=== PATIENT | male | born 1955 | race Caucasian/White ===

== ENCOUNTER 2016-08-26 16:00 | Inpatient (IN) | payer MEDICARE, SELFPAY ==
[~2016-08-26] VITALS: Ht 188 cm; Wt 115.1 kg
--- NOTE | ~2016-08-26 | HP ---
PATIENT'S NAME: LUZ JIMENEZ [facility] AGE: 61 Y [address] ROOM: [place] [address] LOCATION: [facility] [place] ADMIT DATE: 08/26/2016 History & Physical DISCHARGE DATE: FAMILY PHYSICIAN: PHYSICIAN, UNKNOWN ATTENDING PHYSICIAN: Alessandro Reyez DATE OF SERVICE: CHIEF COMPLAINT: Shortness of breath. HISTORY OF PRESENT ILLNESS: The patient is a 61-year-old male with known history of COPD, who presented to Pulmonary Clinic and was feeling short of breath and in the 80s at home. The patient was admitted and is being started on treatments and IV steroids. The patient denies any abdominal pain, fevers, chills, headaches, nausea, vomiting, pain, or burning with urination. PAST MEDICAL HISTORY: 1. COPD. 2. Depression. 3. Diabetes mellitus type 2. 4. GERD. 5. Pure hypercholesterolemia. 6. Pulmonary hypertension. 7. Hypertension. PAST SURGICAL HISTORY: 1. Back surgery. 2. Bronchoscopy. 3. Colonoscopy. ALLERGIES: NOVOCAIN. MEDICATIONS: Please see list. SOCIAL HISTORY: The patient is a former smoker for several years. FAMILY HISTORY: Noncontributory. REVIEW OF SYSTEMS: A complete review of systems was obtained, pertinent positives and negatives as mentioned in the HPI. PATIENT'S NAME: LUZ JIMENEZ [facility] AGE: 61 Y [address] ROOM: [place] [address] LOCATION: [facility] [place] ADMIT DATE: 08/26/2016 History & Physical DISCHARGE DATE: FAMILY PHYSICIAN: PHYSICIAN, UNKNOWN ATTENDING PHYSICIAN: Alessandro Reyez OBJECTIVE: VITAL SIGNS: Temperature is 98.2, pulse 87, respirations 16, blood pressure 130/71. GENERAL: The patient is alert and oriented. Appears in no acute distress. HEENT: Head: Normocephalic and atraumatic. Eyes: Conjunctivae clear. No scleral icterus. Mouth and Oropharynx: Grossly moist and pink. No lesions or exudates. NECK: Supple. No lymphadenopathy or thyromegaly. HEART: Regular rate and rhythm. No rubs, murmurs, or gallops. LUNGS: Decreased breath sounds bilaterally with expiratory wheezes. ABDOMEN: Bowel sounds present. Nontender. EXTREMITIES: No cyanosis, clubbing, or edema. VASCULAR: Pulses +2 and bilaterally. SKIN: No rash or lesions. LYMPHATICS: No lymphadenopathy. NEURO: Cranial nerves 2 through 12 grossly intact. ASSESSMENT: 1. Chronic obstructive pulmonary disease exacerbation. 2. Hypertension. 3. Diabetes mellitus type 2, insulin dependent. 4. Depression. 5. Hyperlipidemia. 6. Gastroesophageal reflux disease. PLAN: At this time, we will start the patient on IV steroids and continue with nebulizer treatments. We will have Pulmonology follow. We will continue to monitor his sugars and adjust insulin accordingly along with diabetes education. We will keep his blood pressure controlled on home medications along with his depression and hyperlipidemia. We will also monitor his GERD symptoms. MD JOSE G LOPEZ/amando /[id number] D: [id number] T: [id number] HISTORY & PHYSICAL
--- NOTE | ~2016-08-26 | DS ---
PATIENT'S NAME: LUZ JIMENEZ [facility] AGE: 61 Y [address] ROOM: [place] [address] LOCATION: [facility] ADMIT DATE: 08/26/2016 Discharge Summary DISCHARGE DATE: 09/01/2016 FAMILY PHYSICIAN: Alessandro Reyez MD ATTENDING PHYSICIAN: Alessandro Reyez DISCHARGE DIAGNOSES: 1. Serratia marcescens bronchiectasis. 2. Rhinovirus. 3. Acute respiratory failure, on chronic respiratory failure. 4. Chronic obstructive pulmonary disease exacerbation. 5. Depression. 6. Diabetes mellitus type 2, insulin dependent. 7. Gastroesophageal reflux disease. 8. Hypertension. 9. Acute on chronic renal failure stage 3. 10. Pure hypercholesterolemia. PROCEDURE DURING ADMISSION: None. CONSULTS DURING ADMISSION: 1. Pulmonology. 2. Diabetes Education. HOSPITAL COURSE: The patient is a 61-year-old male with known history of COPD, who presented to Pulmonary Clinic with acute exacerbation. The patient was hospitalized and respiratory panel to rule out rhinovirus and also Serratia marcescens. The patient was placed on a steroid taper along with DuoNeb treatments and also Levaquin. The patient had elevated sugars throughout his stay and required an insulin drip for some time. The patient's lipids and hypertension were controlled as were his GERD symptoms. Upon day of discharge, the patient's renal function was stable and his creatinine was down to 1.2. DISCHARGE CONDITION: Stable. DISPOSITION: Home. DISCHARGE MEDICATIONS: Please see list. DISCHARGE INSTRUCTIONS: The patient is to follow up in approximately 1 week and with Pulmonology as directed. We will place the patient on Levaquin to cover his Serratia marcescens and do a steroid taper. The patient has continued on breathing treatments at home and will also follow diabetes education recommendations for his insulin. He is to follow up with diabetes PATIENT'S NAME: LUZ JIMENEZ [facility] AGE: 61 Y [address] ROOM: [place] [address] LOCATION: [facility] ADMIT DATE: 08/26/2016 Discharge Summary DISCHARGE DATE: 09/01/2016 FAMILY PHYSICIAN: Alessandro Reyez MD ATTENDING PHYSICIAN: Alessandro Reyez education as directed also. Any concerns, he is to contact the clinic sooner. MD Tatianna LOPEZ /[id number] d: 09/02/16 1047 t: 09/10/16 1733, DISCHARGE SUMMARY
[~2016-08-26 16:00] MED LIST: ASPIR 8181 MG PO; ATORVASTATIN CA20 MG PO; ATROVENT I0.5 MG/2.5 INH; BENADRYL25 MG PO; BYSTOLIC10 MG PO; CATAPRES0.1 M1 PO; CLARITIN10 MG PO; COZAAR100 MG PO; COZAAR50 MG PO; DELTASONE10 MG PO; DELTASONE20 MG PO; DIFLUCAN200 MG PO; HUMALOG100 UNIT/1 SUB-Q; HYDROCHLOROTH12.5 MG PO; IPRAT-ALBUT 0.5-3 ML INH; LEVEMIR100 UNIT/1 SUB-Q; LEXAPRO10 MG PO; NEURONTIN300 MG PO; NILSTAT60 ML PO; NON-ASPIRIN PA500 MG PO; NORVASC10 MG PO; NORVASC5 MG PO; NOVOLOG100 UNIT/1 SUB-Q; NOVOLOG100 UNIT/M; NOVOLOG100 UNIT/M SUB-Q; PLAVIX75 MG PO; PRILOSEC20 MG PO; PROVENTIL OR V6.7 GM INH; PROVERA5 MG; PULMICORT0.5 MG/21 INH; SPIRONOLACTONE25 MG PO; SYMBICORT 16010.2 GM INH; TRESIBA FL100 UNIT/1 IM; TRESIBA FL100 UNIT/1 SUB-Q; VITAMIN D2000 UNIT PO; ZAROXOLYN2.5 MG PO; ZYVOX600 MG PO
[2016-08-26] MEDS ORDERED: LEVEMIR FL100 UNIT/1 SUB-Q (18:27)
[2016-08-26] MEDS ORDERED: VIRTUSSIN AC L118 ML PO (18:31)
[2016-08-26] MEDS ORDERED: DUONEB INH (18:31)
[2016-08-27 05:50] LABS: BASOPHIL % 0.2 %; EOSINOPHIL % 0.2 %; HEMATOCRIT 48.4 % (37.0-53.0); IMMATURE GRANULOCYTE % 0.3 %; LYMPHOCYTE # 0.9 K/uL (0.8-4.0); LYMPHOCYTE % 7.3 %; MCH 30.9 pg (27.0-34.0); MCHC 33.1 gm/dL (32.0-36.5); MCV 93.4 fl (83.0-98.0); MONOCYTE # 0.1 K/uL (0.0-1.0); MONOCYTE % 0.7 %; MPV 11.2 fl (9.4-12.4); NEUTROPHIL # (ANC) 10.8 K/uL (1.4-9.0); NEUTROPHIL % 91.3 %; NRBC % 0 /100WBC (0-0.00); PLATELET COUNT 224 K/uL (150-450); RBC 5.18 M/uL (3.50-5.50); RDW-CV 13.3 % (11.9-14.6); WBC 11.9 K/uL (4.0-11.0)
[2016-08-27 06:11] LABS: ALBUMIN 3.5 gm/dL (3.5-5.0); CALCIUM 8.7 mg/dL (8.5-10.5); CREATININE 1.5 mg/dL (0.6-1.3); TOTAL PROTEIN 7.3 g/dL (6.0-8.4)
[2016-08-27 06:18] LABS: TOTAL BILIRUBIN 0.4 mg/dL (0.0-1.5)
[2016-08-29 04:04] LABS: ANION GAP 16.4 (10.0-19.0); CALCIUM 8.2 mg/dL (8.5-10.5); CREATININE 1.8 mg/dL (0.6-1.3); POTASSIUM 4.4 mMol/L (3.7-5.1)
[2016-08-29 13:58] LABS: BILIRUBIN URINE NEGATIVE (NEGATIVE); BLOOD URINE NEGATIVE /UL (NEGATIVE); COLOR URINE YELLOW (YELLOW); GLUCOSE URINE 1000 mg/dL (NEGATIVE); KETONE URINE NEGATIVE (NEGATIVE); LEUKOCYTES URINE NEGATIVE /UL (NEGATIVE); NITRITE URINE NEGATIVE (NEGATIVE); PROTEIN URINE NEGATIVE (NEGATIVE); TURBIDITY URINE CLEAR (CLEAR); UROBILINOGEN URINE NORMAL (NORMAL)
[2016-08-30 04:53] LABS: ALBUMIN 3.5 gm/dL (3.5-5.0); ANION GAP 16.9 (10.0-19.0); CALCIUM 8.9 mg/dL (8.5-10.5); CREATININE 1.7 mg/dL (0.6-1.3); PHOSPHORUS 2.8 mg/dL (2.5-4.9); POTASSIUM 3.9 mMol/L (3.7-5.1)
[2016-08-31 06:36] LABS: ALBUMIN 3.3 gm/dL (3.5-5.0); BLOOD UREA NITROGEN 28 mg/dL (6-24); CHLORIDE 99 mMol/L (96-110); CO2 27 mMol/L (22-32); CREATININE 1.2 mg/dL (0.6-1.3); PHOSPHORUS 3.9 mg/dL (2.5-4.9); SODIUM 135 mMol/L (135-145)
[2016-08-31 06:37] LABS: ANION GAP 13.6 (10.0-19.0); ESTIMATED GFR (MDRD EQUATION) > 60; POTASSIUM 4.6 mMol/L (3.7-5.1)
[2016-09-01] MEDS ORDERED: LEVEMIR FL100 UNIT/1 SUB-Q (10:36)
[2016-09-01] MEDS ORDERED: LEVAQUIN 750 M750 MG PO (10:38)
[2016-09-01] MEDS ORDERED: DELTASONE20 MG PO (10:50)
[2016-09-01] MEDS ORDERED: HUMALOG100 UNIT/1 SUB-Q (13:11)
== END 2016-09-01 14:00 | disposition disaster alternative care site (69) | DRG 190 ==
LOC: GMSU 17:14 → GPCU 08-27 12:06
PROVIDERS: Internal Medicine Critical Care Medicine; Nurse Practitioner; ADMIT Family Medicine
DX: J44.1 Chronic obstructive pulmonary disease with (acute) exacerbation (principal); J96.21 Acute and chronic respiratory failure with hypoxia; E11.22 Type 2 diabetes mellitus with diabetic chronic kidney disease; N17.9 Acute kidney failure, unspecified; I27.2 Other secondary pulmonary hypertension; N18.3 Chronic kidney disease, stage 3 (moderate); J45.901 Unspecified asthma with (acute) exacerbation; E78.00 Pure hypercholesterolemia, unspecified; F32.9 Major depressive disorder, single episode, unspecified; J44.9 Chronic obstructive pulmonary disease, unspecified; E78.5 Hyperlipidemia, unspecified; Z87.891 Personal history of nicotine dependence; I12.9 Hypertensive chronic kidney disease with stage 1 through stage 4 chronic kidney disease, or unspecified chronic kidney disease; B34.8 Other viral infections of unspecified site; Z79.4 Long term (current) use of insulin; Z86.14 Personal history of Methicillin resistant Staphylococcus aureus infection; G47.33 Obstructive sleep apnea (adult) (pediatric)
CPT/HCPCS: A9270; J2920; J2930; J7040; J7050; J7512

== ENCOUNTER 2017-02-07 18:05 | Emergency (ER) | payer MEDICARE ==
--- NOTE | ~2017-02-07 | ENPV ---
Vascular Lower Extremities DVT Study Procedure Demographics Patient Name LUZ JIMENEZ Date of Study 02/07/2017 Patient Number [id number] Gender Male Date of 1955 Age 62 Visit Number [id number] Height Accession Number [id number] Weight Room Number BSA BMI Referring Aissatou Patel MD Interpreting Stefan Osuna MD Physician Physician Physician Ordering Evangelist Night Time Babysitter Physician Front Man Lela T, [facility] Conclusions Summary No evidence of deep vein thrombosis or superficial thrombophlebitis in the left lower extremity. Procedure Type of Study: Veins:Lower Extremities DVT Study, Lower Extremity Left. Indications for Study:Pain in Limb. Appropriate Use Criteria:9 Allergies - Other:(novacaine). - Other:(Procaine). - Other:(procaine). Patient Status:STAT. Study Location:ER. Technical Quality:Adequate visualization. Velocities are measured in cm/s ; Diameters are measured in cm Left Lower Extremities DVT Study Measurements Left 2D and Doppler Measurements + + + + +------+------+ + !Location !Visualized!Compressibility!Thrombosis!Signal!Reflux!Reflux ! ! ! ! ! ! ! !(sec) ! + + + + +------+------+ + !GSV Thigh !Yes !Yes !None !Phasic! ! ! + + + + +------+------+ + !Common !Yes !Yes !None !Phasic! ! ! !Femoral ! ! ! ! ! ! ! + + + + +------+------+ + !Prox !Yes !Yes !None !Phasic! ! ! !Femoral ! ! ! ! ! ! ! + + + + +------+------+ + !Mid Femoral!Yes !Yes !None !Phasic! ! ! + + + + +------+------+ + !Dist !Yes !Yes !None !Phasic! ! ! !Femoral ! ! ! ! ! ! ! + + + + +------+------+ + !Popliteal !Yes !Yes !None !Phasic! ! ! + + + + +------+------+ + !Gastroc !Yes !Yes !None !Phasic! ! ! + + + + +------+------+ + !PTV !Yes !Yes !None ! ! ! ! + + + + +------+------+ + !Peroneal !Yes !Yes !None ! ! ! ! + + + + +------+------+ + Signature dtt: MARIANNE RAMSAY dtjd: 02/07/17 1924 Physician Self Edit
--- NOTE | ~2017-02-07 | ER ---
PATIENT'S NAME: LUZ JIMENEZ [facility] AGE: 62 Y [address] ROOM: [place] [address] LOCATION: ED ADMIT DATE: 02/07/2017 ER/Outpatient Report DISCHARGE DATE: 02/07/2017 FAMILY PHYSICIAN: Alessandro Reyez MD ATTENDING PHYSICIAN: Yosvany Morley Time of Arrival: 1816 hours. Time of Exam: 1830 hours. CHIEF COMPLAINT: Left castro pain and left flank pain. HISTORY OF PRESENT ILLNESS: The patient states this morning he woke up with pain in his anterior left lower leg and in the left lower back area. States he took a hot bath, took tramadol, he did eat some, he did go back to sleep; when he woke up this evening at 5 o'clock, he states the pain was back and did not seem to calm down this evening with the home medicines that he had taken. He states the lower leg is tender when he walks. He has not had any recent injury, has not fallen, has not been lifting anything different. [place] the [place] and did walk around quite a bit, but no other change in his routine. ALLERGIES: HE HAS NO KNOWN ALLERGIES. CURRENT MEDICATIONS: On his chart and reviewed by me. PAST MEDICAL HISTORY: [id number] diabetes, hypertension, COPD, depression, GERD, and pulmonary hypertension. PAST SURGERIES: Back surgery. He had a tracheostomy in October 2015 due to supraglottic edema, got bronchoscopy done at that time. He has also had a L4 diskectomy. SOCIAL HISTORY: Quit smoking many years ago. Denies use of drugs or alcohol. He states Dr. Reyez is his primary provider. REVIEW OF SYSTEMS: All negative other than those mentioned in the HPI. PHYSICAL EXAMINATION: VITAL SIGNS: He weighed 105.3 kg, blood pressure is 142/86, pulse is 68, PATIENT'S NAME: LUZ JIMENEZ [facility] AGE: 62 Y [address] ROOM: [place] [address] LOCATION: ED ADMIT DATE: 02/07/2017 ER/Outpatient Report DISCHARGE DATE: 02/07/2017 FAMILY PHYSICIAN: Alessandro Reyez MD ATTENDING PHYSICIAN: Yosvany Morley respirations 18, temperature of 97.7 tympanic, and O2 saturation was 95% on room air. GENERAL: He is awake, alert, and oriented x4. SKIN: [place], warm, and dry. RESPIRATIONS: Even and nonlabored. Lung sounds were clear throughout. HEART: Regular rate and rhythm. ABDOMEN: Soft, nondistended. Bowel sounds are present. MUSCULOSKELETAL: He has no swelling of the left lower leg. He has strong pedal pulses on the left. Negative Homans. BACK: Tender over the left flank area. Positive for CMV tenderness. EMERGENCY ROOM COURSE: Saline lock was initiated. Lab was drawn. Fluids of normal saline were started at a wide-open rate. He was given Toradol 15 mg IV. CBC is within normal limits. Chem panel is within normal limits. His glucose is 339, BUN is 29, with creatinine of 1.3. ProBNP was 107. Lactate was 1.8. D-dimer is negative. Procalcitonin is negative. Clean-catch UA positive for glucose and ketones, but negative for blood. Did do Doppler of his left lower leg, it is negative for any kind of clot. CT for renal calculi was completed. Radiologist reports no acute findings. The patient states the pain did improve with the Toradol. IMPRESSION: 1. Left flank pain. 2. Left castro pain. PLAN: Home, rest, fluids. Continue his current medications. Did write a prescription for Keene. If his pain persists or worsen, he is to follow up with his primary provider in the next 2 to 3 days. He verbalized understanding. ARMAND COONEY APRN FOR MD DALIA BHAKTA/amando /[id number] d: 02/08/17 0109 t: 02/24/17 0549, OUTPATIENT REPORT
[~2017-02-07 18:05] MED LIST changes: +DUONEB INH; +LEVAQUIN 750 M750 MG PO; +LEVEMIR FL100 UNIT/1 SUB-Q; +VIRTUSSIN AC L118 ML PO
[2017-02-07 18:52] LABS: BASOPHIL # 0.1 K/uL (0.0-0.2); BASOPHIL % 0.7 %; EOSINOPHIL # 0.7 K/uL (0.0-0.5); EOSINOPHIL % 6.8 %; HEMATOCRIT 46.6 % (37.0-53.0); HEMOGLOBIN 16.2 g/dL (11.0-16.0); IMMATURE GRANULOCYTE % 0.4 %; LYMPHOCYTE # 2.4 K/uL (0.8-4.0); LYMPHOCYTE % 21.8 %; MCH 32.3 pg (27.0-34.0); MCHC 34.8 gm/dL (32.0-36.5); MCV 92.8 fl (83.0-98.0); MONOCYTE # 0.6 K/uL (0.0-1.0); MONOCYTE % 5.9 %; MPV 11.3 fl (9.4-12.4); NEUTROPHIL # (ANC) 6.9 K/uL (1.4-9.0); NEUTROPHIL % 64.4 %; NRBC % 0 /100WBC (0-0.00); PLATELET COUNT 286 K/uL (150-450); RBC 5.02 M/uL (3.50-5.50); RDW-CV 12.3 % (11.9-14.6); WBC 10.8 K/uL (4.0-11.0)
[2017-02-07 19:17] LABS: ALBUMIN 3.6 gm/dL (3.5-5.0); ANION GAP 14.7 (10.0-19.0); CREATININE 1.3 mg/dL (0.6-1.3); POTASSIUM 4.7 mMol/L (3.7-5.1); TOTAL BILIRUBIN 0.4 mg/dL (0.0-1.5)
[2017-02-07 19:57] LABS: BILIRUBIN URINE NEGATIVE (NEGATIVE); BLOOD URINE NEGATIVE /UL (NEGATIVE); COLOR URINE YELLOW (YELLOW); GLUCOSE URINE 1000 mg/dL (NEGATIVE); KETONE URINE 15 mg/dL (NEGATIVE); LEUKOCYTES URINE NEGATIVE /UL (NEGATIVE); NITRITE URINE NEGATIVE (NEGATIVE); PROTEIN URINE NEGATIVE (NEGATIVE); SPEC GRAVITY URINE 1.015 (1.003-1.035); TURBIDITY URINE CLEAR (CLEAR); UROBILINOGEN URINE NORMAL (NORMAL)
== END 2017-02-07 21:02 | disposition disaster alternative care site (69) ==
LOC: GMED 18:05
PROVIDERS: Nurse Practitioner Family
DX: R10.9 Unspecified abdominal pain (principal); M79.662 Pain in left lower leg; I10 Essential (primary) hypertension; E11.9 Type 2 diabetes mellitus without complications; K21.9 Gastro-esophageal reflux disease without esophagitis; F32.9 Major depressive disorder, single episode, unspecified; J44.9 Chronic obstructive pulmonary disease, unspecified; Z87.891 Personal history of nicotine dependence; Z79.4 Long term (current) use of insulin; Z79.891 Long term (current) use of opiate analgesic; Z79.899 Other long term (current) drug therapy; Z93.0 Tracheostomy status; Z98.890 Other specified postprocedural states
CPT/HCPCS: J1885; J7030

== ENCOUNTER → 2017-02-16 | Outpatient (CLI) | payer MEDICARE | END | disposition disaster alternative care site (69) | LOC: GRAD 12:21 | DX: M54.42 Lumbago with sciatica, left side (principal); M47.896 Other spondylosis, lumbar region; M41.9 Scoliosis, unspecified; M48.06 Spinal stenosis, lumbar region ==